=== PATIENT | female | born 2000 | race African-American/Black ===

== ENCOUNTER 2020-01-01 01:15 | Outpatient (CLI) | payer MEDICAID ==
[~2020-01-01] VITALS: Ht 157.5 cm; Wt 65.5 kg
[2020-01-01 01:15] VITALS: BP 114/67
[2020-01-01 02:27] LABS: MICROSCOPIC INDICATED
[2020-01-01 02:41] LABS: BASOPHILS # (AUTO) 0.03 x10^3/uL (0-0.3); BASOPHILS % (AUTO) 0 % (0-1); EOSINOPHILS # (AUTO) 0.18 x10^3/uL (0-0.8); EOSINOPHILS % (AUTO) 2 % (1-7); LYMPHOCYTES # (AUTO) 1.85 x10^3/uL (1-6.1); LYMPHOCYTES % (AUTO) 23 % (22-44); MD NO; MEAN CORPUSCULAR HEMOGLOBIN 27.2 pg (27.0-34.8); MEAN CORPUSCULAR HGB CONC 32.9 g/dL (32.4-35.8); MEAN CORPUSCULAR VOLUME 82.5 fL (80-100); MEAN PLATELET VOLUME 9.2 fL (7.4-10.4); MONOCYTES # (AUTO) 0.45 x10^3/uL (0-1.4); MONOCYTES % (AUTO) 6 % (2-9); NEUTROPHILS # (AUTO) 5.39 x10^3/uL (1.8-8.0); NEUTROPHILS % (AUTO) 68 % (42-75); PLATELET COUNT 233 x10^3/uL (130-400); RED BLOOD COUNT 3.51 x10^6/uL (3.82-5.3); RED CELL DISTRIBUTION WIDTH 13.4 % (9.6-15.2)
[2020-01-01 02:46] LABS: AMPHETAMINE SCREEN, URINE Negative (Negative); BARBITURATE SCREEN, URINE Negative (Negative); BENZODIAZEPINE SCREEN, URINE Negative (Negative); CANNABINOID SCREEN, URINE Positive (Negative); COCAINE SCREEN, URINE Negative (Negative); METHADONE SCREEN, URINE Negative (Negative); OPIATE SCREEN, URINE Negative (Negative)
== END 2020-01-01 03:20 | disposition home or self-care (01) ==
LOC: LDOP 01:15
PROVIDERS: ATTEND Obstetrics & Gynecology
DX: O46.93 Antepartum hemorrhage, unspecified, third trimester (principal); Z3A.29 29 weeks gestation of pregnancy
CPT/HCPCS: 36415; 59025; 76815; 80307; 81001; 85025; 86592; 86762; 86850; 86900; 87086; 87340; 87806; 99201; G0463; G0475

== ENCOUNTER 2020-02-02 05:42 | Inpatient (IN) | payer MEDICAID ==
[~2020-02-02] VITALS: Ht 157.5 cm; Wt 151.0 kg
[2020-02-02] VITALS (9 sets, daily range): BP systolic 110–129; BP diastolic 70–85
[2020-02-02] MEDS ORDERED: CEFAZOLIN 1,000 MG ONE (06:18)
[2020-02-02] MEDS ORDERED: OXYTOCIN 10 UNITS/ML, 1ML ONE (06:18)
[2020-02-02] MEDS ORDERED: ONDANSETRON 2MG/ML, 2ML ONE (06:18)
[2020-02-02] MEDS ORDERED: FENTANYL PF 100 MCG/2ML ONE (06:18)
[2020-02-02] MEDS ORDERED: HYDROmorphone 2 MG/ML, 1ML ONE (06:18)
[2020-02-02] MEDS ORDERED: KETAMINE 10 MG/ML, 20ML ONE (06:21)
[2020-02-02] MEDS ORDERED: SODIUM CITRATE/CITRIC ACID 30 ML UDC ONE (06:21)
[2020-02-02] MEDS ORDERED: METOCLOPRAMIDE 5 MG/ML, 2ML ONE (06:22)
[2020-02-02] MEDS ORDERED: SUCCINYLCHOLINE 20 MG/ML, 10ML ONE (06:24)
[2020-02-02] MEDS ORDERED: CEFAZOLIN PMX 1GM/50ML 50 ML IVPB ONE (06:30)
[2020-02-02] MEDS ORDERED: CLINDAMYCIN PMX 900MG/50ML 50 ML IVPB ONE (06:30)
[2020-02-02] MEDS ORDERED: ONDANSETRON 2MG/ML, 2ML IVPush ONE (06:30)
[2020-02-02] MEDS ORDERED: SODIUM CITRATE/CITRIC ACID 30 ML UDC PO ONE (06:30)
[2020-02-02] MEDS ORDERED: LACTATED RINGERS 1,000 ML IVBOLUS ONE (06:30)
[2020-02-02] MEDS ORDERED: CALCIUM CARBONATE 500 MG TAB.CHEW PO PRN ×2 (06:30→07:30)
[2020-02-02] MEDS ORDERED: AZITHROMYCIN 500 MG in SODIUM CHLORIDE 0.9% 250 ML IV ONE (06:30)
[2020-02-02] MEDS ORDERED: NEWBORN KIT ONE (06:31)
[2020-02-02] MEDS ORDERED: OXYTOCIN 30U/ 0.9% NaCL 500ML 500 ML ONE ×2 (07:14→09:14)
[2020-02-02 07:15] LABS: MICROSCOPIC INDICATED
[2020-02-02 07:18] LABS: AMPHETAMINE SCREEN, URINE Negative (Negative); BARBITURATE SCREEN, URINE Negative (Negative); BENZODIAZEPINE SCREEN, URINE Negative (Negative); CANNABINOID SCREEN, URINE Positive (Negative); COCAINE SCREEN, URINE Negative (Negative); METHADONE SCREEN, URINE Negative (Negative); OPIATE SCREEN, URINE Negative (Negative)
[2020-02-02] MEDS: LACTATED RINGERS 1,000 ML IV SCH ×5 (07:18→23:18)
[2020-02-02] MEDS ORDERED: ACETAMINOPHEN 325 MG TABLET PO PRN (07:30)
[2020-02-02] MEDS ORDERED: ONDANSETRON 2MG/ML, 2ML IV PRN (07:30)
[2020-02-02] MEDS ORDERED: OXYcodone/APAP 5/325MG TABLET PO PRN (07:30)
[2020-02-02] MEDS ORDERED: FENTANYL PF 100 MCG/2ML IV PRN (07:30)
[2020-02-02] MEDS ORDERED: OXYcodone 5 MG/5 ML ORAL.SOL UDC PO PRN (07:30)
[2020-02-02] MEDS ORDERED: LABETALOL 5MG/ML, 20ML IV PRN (07:30)
[2020-02-02] MEDS ORDERED: PROMETHAZINE 25 MG/ML, 1ML IV PRN (07:30)
[2020-02-02] MEDS ORDERED: hydrALAzine 20 MG/ML, 1ML IV PRN (07:30)
[2020-02-02] MEDS ORDERED: MIDAZOLAM 1 MG/ML, 2ML IV PRN (07:30)
[2020-02-02] MEDS ORDERED: MEPERIDINE/PF 25MG/0.5ML IVPush PRN (07:30)
[2020-02-02] MEDS ORDERED: METOCLOPRAMIDE 5 MG/ML, 2ML IV PRN (07:30)
[2020-02-02] MEDS ORDERED: ONDANSETRON 2MG/ML, 2ML IVPush PRN (07:30)
[2020-02-02] MEDS ORDERED: ALBUTEROL/IPRATROPIUM 2.5MG/0.5MG, 3 ML NPPB PRN (07:30)
[2020-02-02] MEDS ORDERED: HYDROmorphone 2 MG/ML, 1ML IVPush PRN (07:30)
[2020-02-02] MEDS ORDERED: PLEASE ENTER HEIGHT AND WEIGHT MC SCH (07:30)
[2020-02-02] MEDS ORDERED: EPHEDRINE 50 MG/ML, 1ML IVPush PRN (07:30)
[2020-02-02] MEDS ORDERED: HYDROcodone/APAP 7.5-325MG/15ML UDC PO PRN (07:30)
[2020-02-02] MEDS ORDERED: METOPROLOL 1 MG/ML, 5ML IV PRN (07:30)
[2020-02-02] MEDS: OXYTOCIN 30U/ 0.9% NaCL 500ML 500 ML IV SCH ×2 (08:13→09:15)
[2020-02-02] MEDS ORDERED: OXYcodone 5 MG/5 ML ORAL.SOL UDC ONE (08:17)
[2020-02-02 08:36] LABS: MEAN CORPUSCULAR HEMOGLOBIN 25.3 pg (27.0-34.8); MEAN CORPUSCULAR HGB CONC 31.8 g/dL (32.4-35.8); MEAN CORPUSCULAR VOLUME 79.6 fL (80-100); MEAN PLATELET VOLUME 7.9 fL (7.4-10.4); PLATELET COUNT 219 x10^3/uL (130-400); RED BLOOD COUNT 2.86 x10^6/uL (3.82-5.3); RED CELL DISTRIBUTION WIDTH 13.4 % (9.6-15.2)
[2020-02-02 08:41] LABS: MD YES
[2020-02-02 08:42] LABS: ANISOCYTOSIS 1+; BAND#(MANUAL) 0.16 x10^3/uL; BANDS%(MANUAL) 1 % (0-7); HYPOCHROMIA 1+; LYMPH#(MANUAL) 1.27 x10^3/uL (1-6.1); LYMPHS% (MANUAL) 8 % (22-44); MICROCYTOSIS 1+; MONOS#(MANUAL) 0.16 x10^3/uL (0.3-2.7); MONOS% (MANUAL) 1 % (2-9); SEG#(MANUAL) 14.31 x10^3/uL (1.8-8); SEGS% (MANUAL) 90 % (42-75)
[2020-02-02 08:43] LABS: <PLATELET ESTIMATE> ADEQUATE; <PLT MORPHOLOGY> NORMAL PLT MORPH; OVALOCYTES 1+; POLYCHROMASIA 1+
[2020-02-02] MEDS: PRENATAL VIT/IRON/FA 1 EACH TABLET PO SCH (09:00)
[2020-02-02 09:45] LABS: ALANINE AMINOTRANSFERASE 16 U/L (12-78); ALBUMIN 2.4 g/dL (3.4-5.0); ANION GAP 6 mmol/L (5-15); CALCIUM 7.7 mg/dL (8.5-10.1); CHLORIDE 112 mmol/L (98-107); CREATININE 0.59 mg/dL (0.55-1.02)
[2020-02-02 09:46] LABS: MICROSCOPIC INDICATED
[2020-02-02 09:47] LABS: ALKALINE PHOSPHATASE 139 U/L (45-117); BILIRUBIN,TOTAL 0.2 mg/dL (0.2-1.0); TOTAL PROTEIN 5.9 g/dL (6.4-8.2)
[2020-02-02 10:13] LABS: INTERNATIONAL NORMALIZED RATIO 0.92 (0.93-1.1); PROTHROMBIN TIME 9.7 Seconds (9.6-11.5)
[2020-02-02] MEDS: OXYcodone/APAP 5/325MG TABLET PO PRN ×3 (12:39→21:30)
[2020-02-02 19:11] LABS: MEAN CORPUSCULAR HEMOGLOBIN 25.6 pg (27.0-34.8); MEAN CORPUSCULAR HGB CONC 32.4 g/dL (32.4-35.8); MEAN CORPUSCULAR VOLUME 79.1 fL (80-100); MEAN PLATELET VOLUME 8.7 fL (7.4-10.4); PLATELET COUNT 198 x10^3/uL (130-400); RED BLOOD COUNT 2.37 x10^6/uL (3.82-5.3); RED CELL DISTRIBUTION WIDTH 13.1 % (9.6-15.2)
[2020-02-02 19:43] LABS: MD YES
[2020-02-02 19:45] LABS: BANDS%(MANUAL) 2 % (0-7); EOS#(MANUAL) 0.15 x10^3/uL (0.0-0.8); EOS% (MANUAL) 1 % (1-7); LYMPH#(MANUAL) 2.22 x10^3/uL (1-6.1); LYMPHS% (MANUAL) 15 % (22-44); MONOS#(MANUAL) 0.59 x10^3/uL (0.3-2.7); MONOS% (MANUAL) 4 % (2-9); SEG#(MANUAL) 11.54 x10^3/uL (1.8-8); SEGS% (MANUAL) 78 % (42-75)
[2020-02-02 19:46] LABS: <PLATELET ESTIMATE> ADEQUATE; <PLT MORPHOLOGY> NORMAL PLT MORPH; HYPOCHROMIA 1+; MICROCYTOSIS 1+; OVALOCYTES 1+; POLYCHROMASIA 1+
[2020-02-03 00:40] VITALS: BP 131/85
[2020-02-03 01:25] VITALS: BP 131/85
[2020-02-03] MEDS: OXYcodone/APAP 5/325MG TABLET PO PRN ×5 (02:35→21:56)
[2020-02-03] MEDS: OXYTOCIN 30U/ 0.9% NaCL 500ML 500 ML IV SCH ×3 (03:18→23:18)
[2020-02-03] MEDS: LACTATED RINGERS 1,000 ML IV SCH ×6 (03:18→23:18)
[2020-02-03 04:15] VITALS: BP 130/80
[2020-02-03 06:09] LABS: MEAN CORPUSCULAR HEMOGLOBIN 27.3 pg (27.0-34.8); MEAN CORPUSCULAR HGB CONC 32.6 g/dL (32.4-35.8); MEAN CORPUSCULAR VOLUME 83.6 fL (80-100); MEAN PLATELET VOLUME 8.6 fL (7.4-10.4); PLATELET COUNT 184 x10^3/uL (130-400); RED BLOOD COUNT 2.65 x10^6/uL (3.82-5.3); RED CELL DISTRIBUTION WIDTH 15.6 % (9.6-15.2)
[2020-02-03 08:22] VITALS: BP 134/94
[2020-02-03] MEDS: PRENATAL VIT/IRON/FA 1 EACH TABLET PO SCH (08:27)
[2020-02-03] MEDS: DOCUSATE 100 MG CAPSULE PO PRN ×2 (08:27→21:56)
[2020-02-03 08:30] LABS: BASOPHILS # (AUTO) 0.06 x10^3/uL (0-0.3); BASOPHILS % (AUTO) 0 % (0-1); EOSINOPHILS # (AUTO) 0.19 x10^3/uL (0-0.8); EOSINOPHILS % (AUTO) 1 % (1-7); LYMPHOCYTES # (AUTO) 2.04 x10^3/uL (1-6.1); LYMPHOCYTES % (AUTO) 15 % (22-44); MD SCAN; MONOCYTES # (AUTO) 0.79 x10^3/uL (0-1.4); MONOCYTES % (AUTO) 6 % (2-9); NEUTROPHILS % (AUTO) 77 % (42-75)
[2020-02-03 20:10] VITALS: BP 119/75
[2020-02-04] MEDS: OXYcodone/APAP 5/325MG TABLET PO PRN ×4 (02:05→18:33)
[2020-02-04 07:40] VITALS: BP 116/80
[2020-02-04] MEDS: PRENATAL VIT/IRON/FA 1 EACH TABLET PO SCH (09:00)
[2020-02-04 19:05] VITALS: BP 124/81
[2020-02-04] MEDS: DOCUSATE 100 MG CAPSULE PO PRN (22:32)
[2020-02-05] MEDS: OXYcodone/APAP 5/325MG TABLET PO PRN ×5 (04:08→22:39)
[2020-02-05] MEDS: SIMETHICONE 80 MG CHEW TAB PO PRN ×3 (08:24→22:39)
[2020-02-05] MEDS: PRENATAL VIT/IRON/FA 1 EACH TABLET PO SCH (08:25)
[2020-02-05] MEDS: DOCUSATE 100 MG CAPSULE PO PRN ×2 (08:29→22:40)
[2020-02-05 08:30] VITALS: BP 118/77
[2020-02-05 20:00] VITALS: BP 132/84
[2020-02-06] MEDS: OXYcodone/APAP 5/325MG TABLET PO PRN ×3 (02:44→12:02)
[2020-02-06 07:40] VITALS: BP 138/90
[2020-02-06] MEDS ORDERED: DOCU-131 PO (16:27)
[2020-02-06] MEDS ORDERED: FERR324T5 PO (16:27)
[2020-02-06] MEDS ORDERED: OXYC-302 PO (16:27)
[2020-02-06] MEDS ORDERED: IBUP-1222 PO (16:27)
== END 2020-02-06 16:40 | disposition home or self-care (01) | DRG 786 ==
LOC: LDOP 05:42 → LDIP 06:15 → 2NW 09:56
PROVIDERS: ADMIT Obstetrics & Gynecology; ATTEND Obstetrics & Gynecology
PROC: 10D00Z1 Extraction of Products of Conception, Low, Open Approach (ICD-10-PCS; principal; 2020-02-02)
PROC: 30233P1 Transfusion of Nonautologous Frozen Red Cells into Peripheral Vein, Percutaneous Approach (ICD-10-PCS; 2020-02-02)
DX: O76 Abnormality in fetal heart rate and rhythm complicating labor and delivery (principal); O45.93 Premature separation of placenta, unspecified, third trimester; Z3A.34 34 weeks gestation of pregnancy; Z37.0 Single live birth; O90.81 Anemia of the puerperium; D64.9 Anemia, unspecified
CPT/HCPCS: 36415; 76805; 80053; 80307; 81001; 82570; 82803; 84156; 84550; 85025; 85384; 85610; 85730; 86592; 86850; 86900; 86923; 87086; 87635; 88307; G0378; J0690; J1170; J2405; J3010; J0330; J2590; J2765; J7120; P9016